=== PATIENT | male | born 1990 | race Caucasian/White ===

== ENCOUNTER 2017-11-13 06:32 | Emergency (ER) | payer OTHER ==
[2017-11-13] MEDS ORDERED: ONDANSETRON HCL 4 MG/2 ML VIAL ONE (06:46)
[2017-11-13] MEDS ORDERED: IBUPROFEN 800 MG TAB ONE (06:46)
[2017-11-13] MEDS ORDERED: DEXAMETHASONE SOD PHOSPHATE 10MG/ML 1ML VIAL ONE (06:46)
[2017-11-13] MEDS ORDERED: ONDANSETRON ODT 4 MG TAB ONE (06:47)
[2017-11-13 07:04] LABS: RAPID GROUP A STREP NEGATIVE (NEGATIVE)
== END 2017-11-13 07:42 | disposition home or self-care (01) ==
LOC: EDH 06:32
DX: J20.9 Acute bronchitis, unspecified (principal); J02.9 Acute pharyngitis, unspecified; R11.0 Nausea
CPT/HCPCS: 87804 ×2; 87880; 96372; 99284; J1100; J2405